=== PATIENT | male | born 1965 | race Caucasian/White ===

== ENCOUNTER 2016-10-30 14:07 | Emergency (ER) | payer BC ==
[2016-10-30 15:06] LABS: Hematocrit 43 % (42-52); Hemoglobin 14.7 g/dl (14.0-18.0); Mean Corpuscular HGB Conc 34 g/dl (31-36); Mean Corpuscular Hemoglobin 32 pg (27-31); Mean Corpuscular Volume 94 fL (80-94); Mean Platelet Volume 8 um3 (7.4-10.4); Red Blood Count 4.61 10^6/ul (4.0-5.4); Red Cell Distribution Width 13 % (10.5-15); White Blood Count 11.2 10^3/ul (3.5-10.8)
[2016-10-30 15:35] LABS: ALT 26 U/L (7-52); AST 21 U/L (13-39); Albumin 4.1 g/dL (3.2-5.2); Alkaline Phosphatase 53 U/L (34-104); Anion Gap 10 mmol/L (2-11); BUN/Creatinine Ratio 25.6 (8-20); Blood Urea Nitrogen 20 mg/dL (6-24); C Reactive Protein 17.21 mg/L (< 5.00); CO2 Carbon Dioxide 25 mmol/L (22-32); Calcium 8.9 mg/dL (8.6-10.3); Chloride 98 mmol/L (101-111); EGFR African American 134.4 (>60); EGFR Non-African American 104.5 (>60); Globulin 3.6 g/dL (2-4); Glucose 301 mg/dL (70-100); Lipase 15 U/L (11.0-82.0); Sodium 133 mmol/L (133-145); Total Protein 7.7 g/dL (6.4-8.9)
[2016-10-30] MEDS ORDERED: Iodixanol* (CONTRAST) 320 MG/ML 100 ML SDV IV ONE (15:45)
--- NOTE | 2016-10-30 16:29 | RAD ---
INDICATION: Abdominal pain, vomiting. Post appendectomy. History of urolithiasis. Diabetic. COMPARISON: No relevant prior exams available on the [facility] for comparison. TECHNIQUE: Multidetector CT images were obtained from the lung bases to the ischial tuberosities with 119 mL Visipaque 320 IV and oral contrast. Multiplanar reformation. REPORT: Physiologic small volume of pericardial fluid. Clear visualized lung bases. Mildly decreased density of the liver consistent with mild fatty infiltration. Negative for focal hepatic lesions or biliary dilatation. Unremarkable gallbladder, pancreas, spleen. Negative for CT abnormality of the upper GI or small bowel. Post appendectomy. Mild colonic diverticulosis primarily at the sigmoid colon without findings of diverticulitis. Negative for ascites, free air, or significant hernias. Normal adrenal glands. Small exophytic cyst at the lower pole of the RIGHT kidney. No suspicious focal renal lesions, conspicuous stones within limits of contrast enhanced CT, or hydronephrosis. Symmetric nephrograms and pyelograms. Unremarkable nondilated ureters and partially distended urinary bladder. Coarse calcification of the prostate. Symmetric seminal vesicles. Negative for lymphadenopathy. Normal diameter abdominal aorta and iliac arteries. Physiologic distention of the IVC. Enthesophyte noted at the LEFT anterior inferior iliac spine corresponding with the origin of the rectus femoris muscle. Negative for suspicious focal osseous lesions. IMPRESSION: 1. Mild fatty infiltration of the liver. 2. Mild colonic diverticulosis without findings of diverticulitis. Post appendectomy. 3. Negative for ascites. 4. Negative for obstructive uropathy. 5. Negative for lymphadenopathy.
[2016-10-30] MEDS ORDERED: Al Hydrox/Mg Hydrox/Simet LIQ* 30 ML UDC PO ONE (17:12)
[2016-10-30] MEDS ORDERED: Ondansetron INJ* 2 MG/ML VIAL IV ONE (17:12)
[2016-10-30] MEDS ORDERED: Lidocaine 2% VISCOUS* 15 ML UDC PO ONE (17:12)
[2016-10-30] MEDS ORDERED: oxyCODONE/Acetamin 5/325 MG* TAB PO ONE (17:12)
[2016-10-30 19:58] LABS: Alcohol < 10 mg/dL (<10)
[2016-10-30 20:08] LABS: TSH (Thyroid Stimulating Horm) 1.16 mcIU/mL (0.34-5.60)
[2016-10-30] MEDS ORDERED: Ondansetron ODT TAB* 4 MG PO ONE (21:33)
[2016-10-30] MEDS ORDERED: HYDROcodone/ACETAMIN 5-325 MG* 1 TAB PO ONE (21:34)
--- NOTE | 2016-10-30 21:35 | ED ---
Progress - Progress Note Progress Note: pt signed out came in with abd pain s/p endoscopy at an outside facility and pain here with suicidal ideations, ct abd/pelvis neg. mental health has cleared pt, pt feeling meds not working agreed to a small course of pain meds to help - Consult/PCP Time Called: 19:00 Course/Dx - Diagnoses Provider Diagnoses: Abdominal pain
[2016-10-30 21:59] VITALS: BP 158/74
--- NOTE | 2016-11-08 14:39 | ED ---
Sharad Elam Auryana, scribed for Britton Raphael MD on 10/30/16 at 1428 . Abdominal Pain/Male - HPI Summary HPI Summary: 51 year old male presents with worsening upper abdominal pain starting 2 days ago. The pain is characterized as burning in the epigastrium. He also c/o nausea , and vomiting and states that he was unable to go to doctors appointment today. He denies that he has not had a drink since August. Per nurse report, patient has thoughts of self harm and SI. He reports being frustrated with health problems. Patient was seen at [facility] and transferred to the ED for further evaluation. PMHx is significant for HTN, DM, and alcohol abuse - clean currently. Patient is medically clear for E 16:15. - History of Current Complaint Chief Complaint: EDAbdPain Stated Complaint: ABD PAIN Time Seen by Provider: 10/30/16 14:16 Hx Obtained From: Patient Onset/Duration: Gradual Onset, Still Present Timing: Constant Severity Initially: Moderate Severity Currently: Severe Pain Intensity: 10 - REPORTS IMPROVEMENT WITH PAIN MEDICATION Pain Scale Used: 0-10 Numeric Location: Epigastric Character: Burning Associated Signs And Symptoms: Positive: Vomiting - Allergies/Home Medications Allergies/Adverse Reactions: Allergies Allergy/AdvReac Type Severity Reaction Status Date / Time No Known Allergies Allergy Verified 10/30/16 14:41 Home Medications: Home Medications Atenolol TAB* [Tenormin TAB* 50 MG] 50 mg PO DAILY 10/30/16 [History Confirmed 10/30/16] Omeprazole CAP* [Prilosec CAP* 20 MG] 20 mg PO BID 10/30/16 [History Confirmed 10/30/16] Promethazine SUPP* [Phenergan Supp*] 25 mg SC TID PRN 10/30/16 [History Confirmed 10/30/16] Sucralfate TAB* [Carafate*] 1 gm PO ACHS 10/30/16 [History Confirmed 10/30/16] Thiamine TAB* [Vitamin B-1 TAB*] 100 mg PO DAILY 10/30/16 [History Confirmed ] metFORMIN* [Glucophage 500 MG TAB *] 500 mg PO BID 10/30/16 [History Confirmed 10/30/16] PMH/Surg Hx/FS Hx/Imm Hx Endocrine/Hematology History: Reports: Hx Diabetes Cardiovascular History: Reports: Hx Hypertension Psychiatric History: Reports: Hx Substance Abuse - ETOH Infectious Disease History: Yes Infectious Disease History: Denies: Traveled Outside the [place] in Last 30 Days - Family History Known Family History: Positive: Other - ETOH ABUSE - Social History Alcohol Use: None Alcohol Amount: SOBER - PREVIOUS ETOH ABUSE Hx Substance Use: No Substance Use Type: Reports: None Hx Tobacco Use: Yes Review of Systems Constitutional: Negative Negative: Fever, Chills Eyes: Negative Negative: Erythema ENT: Negative Negative: Sore Throat Cardiovascular: Negative Negative: Chest Pain Respiratory: Negative Negative: Shortness Of Breath, Cough Positive: Abdominal Pain, Vomiting, Nausea Genitourinary: Negative Negative: dysuria, hematuria Musculoskeletal: Negative Negative: Myalgia, Edema Skin: Negative Negative: Rash Neurological: Negative, Other - no dizziness Positive: Other - SI/SELF-HARM All Other Systems Reviewed And Are Negative: Yes Physical Exam - Summary Physical Exam Summary: Constitutional: Well-developed, Well-nourished, Alert. (-) Distressed Skin: Warm, Dry HENT: Normocephalic; Atraumatic Eyes: Conjunctiva normal Neck: Musculoskeletal ROM normal neck. (-) JVD, (-) Stridor, (-) Tracheal deviation Cardio: Rhythm regular, rate normal, Heart sounds normal; Intact distal pulses; The pedal pulses are 2+ and symmetric. Radial pulses are 2+ and symmetric. (-) Murmur Pulmonary/Chest wall: Effort normal. (-) Respiratory distress, (-) Wheezes, (-) Rales Abd: Soft, (-) Tenderness, (-) Distension, (-) Guarding, (-) Rebound Musculoskeletal: (-) Edema Lymph: (-) Cervical adenopathy Neuro: Alert, Oriented x3 Psych: Mood and affect Normal Triage Information Reviewed: Yes Vital Signs On Initial Exam: Initial Vitals Temp Pulse Resp BP 99.2 F 82 22 198/100 10/30/16 14:12 10/30/16 14:12 10/30/16 14:12 10/30/16 14:12 Vital Signs Reviewed: Yes Diagnostics - Vital Signs Vital Signs Temp Pulse Resp BP Pulse Ox 10/30/16 14:20 99.2 F 80 20 198/100 98 10/30/16 14:12 99.2 F 82 22 198/100 - Laboratory Lab Results: Lab Results 10/30/16 10/30/16 10/30/16 Range/Units 14:50 14:50 14:50 WBC 11.2 H (3.5-10.8) 10^3/ul RBC 4.61 (4.0-5.4) 10^6/ul Hgb 14.7 (14.0-18.0) g/dl Hct 43 (42-52) % MCV 94 (80-94) fL MCH 32 H (27-31) pg MCHC 34 (31-36) g/dl RDW 13 (10.5-15) % Plt Count 257 (150-450) 10^3/ul MPV 8 (7.4-10.4) um3 Neut % (Auto) 86.5 H (38-83) % Lymph % (Auto) 10.9 L (25-47) % [place]wey % (Auto) 2.1 (1-9) % Eos % (Auto) 0.1 (0-6) % Baso % (Auto) 0.4 (0-2) % Absolute Neuts (auto) 9.7 H (1.5-7.7) 10^3/ul Absolute Lymphs (auto) 1.2 (1.0-4.8) 10^3/ul Absolute Monos (auto) 0.2 (0-0.8) 10^3/ul Absolute Eos (auto) 0 (0-0.6) 10^3/ul Absolute Basos (auto) 0 (0-0.2) 10^3/ul Absolute Nucleated RBC 0 10^3/ul Nucleated RBC % 0 Sodium 133 (133-145) mmol/L Potassium 4.0 (3.5-5.0) mmol/L Chloride 98 L (101-111) mmol/L Carbon Dioxide 25 (22-32) mmol/L Anion Gap 10 (2-11) mmol/L BUN 20 (6-24) mg/dL Creatinine 0.78 (0.67-1.17) mg/dL Est GFR ( Amer) 134.4 (>60) Est GFR (Non-Af Amer) 104.5 (>60) BUN/Creatinine Ratio 25.6 H (8-20) Glucose 301 H (70-100) mg/dL Lactic Acid 1.7 (0.5-2.0) mmol/L Calcium 8.9 (8.6-10.3) mg/dL Total Bilirubin 0.70 (0.2-1.0) mg/dL AST 21 (13-39) U/L ALT 26 (7-52) U/L Alkaline Phosphatase 53 (34-104) U/L C-Reactive Protein 17.21 H (< 5.00) mg/L Total Protein 7.7 (6.4-8.9) g/dL Albumin 4.1 (3.2-5.2) g/dL Globulin 3.6 (2-4) g/dL Albumin/Globulin Ratio 1.1 (1-3) Lipase 15 (11.0-82.0) U/L TSH 1.16 (0.34-5.60) mcIU/mL Serum Alcohol < 10 (<10) mg/dL Result Diagrams: 10/30/16 14:50 10/30/16 14:50 Lab Statement: Any lab studies that have been ordered have been reviewed, and results considered in the medical decision making process. - CT ABD/PEL CT Interpretation: Positive (See Comments) - IMPRESSION: 1. Mild fatty infiltration of the liver. 2. Mild colonic diverticulosis without findings of diverticulitis. Post appendectomy. 3. Negative for ascites. 4. Negative for obstructive uropathy. 5. Negative for lymphadenopathy. CT Interpretation Completed By: Radiologist Abdominal Pain Fem Course/Dx - Course Assessment/Plan: 51 year old male presents with worsening upper abdominal pain starting 2 days ago. The pain is characterized as burning in the epigastrium. He also c/o nausea, and vomiting and states that he was unable to go to doctor s appointment today. He denies that he has not had a drink since August. Per nurse report, patient has thoughts of self-harm and SI. He reports being frustrated with health problems. Patient was seen at [facility] and transferred to the ED for further evaluation. PMHx is significant for HTN, DM, and alcohol abuse - clean currently. Patient is medically clear for [facility] 16:15. Patient is medically clear for [facility] 16:15. Blood work shows WBC 11.2, chloride 98, BUN/ creatinine ratio 25.6, glucose 301, lactic 1.7, CRP 17.21, Lipase 15. LFT WNL. CT ABD/PEL IMPRESSION: 1. Mild fatty infiltration of the liver. 2. Mild colonic diverticulosis without findings of diverticulitis. Post appendectomy. 3. Negative for ascites. 4. Negative for obstructive uropathy. 5. Negative for lymphadenopathy. Patient will be signed out at shift change pending MHE and UA results PENDING. Patient will be a sign out pending MHE. - Diagnoses Provider Diagnoses: Abdominal pain Discharge - Discharge Plan Condition: Stable Disposition: OTHER Discharge Disposition Comment: signout to attending physician pending [facility]HE Prescriptions: HYDROcodone/ACETAMIN 5-325 MG* [[place] 5-325 TAB*] 1 tab PO Q8H PRN #10 tab MDD 3 PRN Reason: Pain Ondansetron ODT TAB* [Zofran 4 MG Odt TAB*] 4 mg PO Q8H PRN #14 tab.odt PRN Reason: Nausea Referrals: Corinne Flores MD [Primary Care Provider] - The documentation as recorded by the Sharad stafford Auryana accurately reflects the service I personally performed and the decisions made by , Britton Raphael MD.
== END 2016-10-30 21:58 ==
LOC: ED 14:07
DX: R10.9 Unspecified abdominal pain (principal); R11.2 Nausea with vomiting, unspecified
CPT/HCPCS: 36415; 74177; 80053; 80320; 83605; 83690; 84443; 85025; 86140; 96374; 99282; A9270-GY; G0480; J2405; Q9967